=== PATIENT | female | born 1985 | race Caucasian/White ===

== ENCOUNTER 2016-06-26 22:49 | Emergency (ER) | payer MEDICAID, OTHER ==
[~2016-06-26] VITALS: Ht 165.1 cm; Wt 60.0 kg
[~2016-06-26 22:49] MED LIST: SULF1TAB47 PO
[2016-06-26 22:57] VITALS: BP 126/67; PULSE 62; RESP 18; TEMP 98.6; O2SAT 96
[2016-06-26] MEDS ORDERED: TETANUS/DIPHTHERIA TOXOID ADULT 0.5 ML VIAL IM ONE (23:15)
[2016-06-26] MEDS ORDERED: IBUP-232 PO (23:39)
[2016-06-26] MEDS ORDERED: CEPH-460 PO (23:39)
--- NOTE | 2016-06-26 23:39 | PD ---
HPI Chief Complaint: Laceration/Skin Injury Time Seen by Provider: 23:36 Travel History International Travel<30 days: No Contact w/Intl Traveler<30days: No Traveled to known affect area: No History of Present Illness HPI 31 year-old female presents to the emergency department for evaluation a laceration on the posterior right thigh. Patient states she and her significant other were "messing around" when he picked her up and placed her on the bathroom counter. His straight blade was on the counter and she sat on it with her thigh. This resulted in the laceration. She reports moderate pain at the site. Is uncertain of her tetanus status. Denies any alterations in sensation or limitations range of motion. No other symptoms to report. PFSH Past Medical History Medical History: Denies Significant Hx ?: Not LMP: 06/23/16 Social History Alcohol Use: No Tobacco Use: No Substance Use: No Allergies-Medications (Allergen,Severity, Reaction): Coded Allergies: No Known Allergies (Verified , 06/26/16) Reported Meds & Prescriptions Reported Meds & Active Scripts Active Ibuprofen 600 Mg Tab 600 Mg PO Q8HR PRN Keflex (Cephalexin) 500 Mg Cap 500 Mg PO Q6H 5 Days Review of Systems Except as stated in HPI: all other systems reviewed are Neg Physical Exam Narrative GENERAL: Well-nourished, well-developed male patient, in no acute distress SKIN: Focused skin assessment warm/dry. 10 cm laceration on the posterior right thigh. Bleeding is controlled. HEAD: Normocephalic. EYES: No scleral icterus. No injection or drainage. NECK: Supple, trachea midline. No JVD or lymphadenopathy. CARDIOVASCULAR: Regular rate and rhythm without murmurs, gallops, or rubs. RESPIRATORY: Breath sounds equal bilaterally. No accessory muscle use. MUSCULOSKELETAL: No cyanosis, or edema. BACK: Nontender without obvious deformity. No CVA tenderness. Data Data Last Documented VS Vital Signs Date Time Temp Pulse Resp B/P Pulse Ox O2 Delivery O2 Flow Rate FiO2 06/26/16 22:57 98.6 62 18 126/67 96 Room Air Orders Tetanus/Diphtheria Tox Adult (Tetanus/Di (06/26/16 23:15) MDM Medical Decision Making Medical Screen Exam Complete: Yes Emergency Medical Condition: Yes Medical Record Reviewed: Yes Differential Diagnosis Laceration superficial versus deep versus abrasion versus avulsion Narrative Course 31 year-old female presents to emergency department for evaluation of a laceration on her posterior right thigh. This is relatively superficial laceration but does require closure. The wound is cleansed and approximated. Patient is updated on her tetanus vaccination. She agrees to return immediately with any acute worsening of symptoms. Procedures Procedure Narrative LACERATION LOCATION: Posterior right thigh LENGTH: 10 centimeters NUMBER OF STITCHES/ALEXANDRO: 10 sutures REPAIR: The area of the laceration was prepped with Betadine and sterilely draped. The laceration was infiltrated with 1% lidocaine with epinephrine the wound was copiously irrigated and explored without evidence of foreign body, tendon injury or neurovascular injury. The wound was closed using 4-0 Prolene. This was a [single layer repair. A sterile dressing was applied. The patient was advised to keep the dressing clean and dry. Patient tolerated the procedure well. Diagnosis Primary Impression: Laceration of right thigh Qualified Code: S71.111A - Laceration of right thigh, initial encounter Referrals: Primary Care Physician Patient Instructions: General Instructions, Laceration (ED) Additional Instructions: Keep the area clean and dry You may shower Avoid swimming; the ocean, or hot tubs until sutures are out Daily dressing changes Sutures are to be removed in 14 days. This can be done in the emergency department or at your primary care providers office Return to ED with acute worsening of symptoms Med/Other Pt SpecificInfo: Prescription(s) given Scripts Ibuprofen 600 Mg [id number] Mg PO Q8HR PRN (PAIN) #30 TAB Ref 0 Prov:Vida Collins 06/26/16 Cephalexin (Keflex)500 Mg [id number] Mg PO Q6H 5 Days Ref 0 Prov:Vida Collins 06/26/16 Disposition: 01 DISCHARGE HOME Condition: Stable Vida Collins June 26, 2016 23:39
== END 2016-06-27 | disposition home or self-care (01) ==
LOC: NEPD 22:49
DX: S71.111A Laceration without foreign body, right thigh, initial encounter (principal); W26.8XXA Contact with other sharp object(s), not elsewhere classified, initial encounter; Y93.89 Activity, other specified; Y92.002 Bathroom of unspecified non-institutional (private) residence as the place of occurrence of the external cause; Z23 Encounter for immunization
CPT/HCPCS: 12004; 90471; 90714